=== PATIENT | male | born 1990 | race Caucasian/White ===

== ENCOUNTER 2016-05-30 08:09 | Emergency (ER) | payer BC ==
[~2016-05-30] VITALS: Wt 94.5 kg
[~2016-05-30 08:09] MED LIST: TYLENOL
[2016-05-30] MEDS ORDERED: SOD CHLORIDE 0.9% 1,000 ML IV STA (08:59)
[2016-05-30] MEDS ORDERED: ONDANSETRON 4 MG INJ IV STA (08:59)
[2016-05-30] MEDS ORDERED: morphine 2 MG INJ IV STA (08:59)
--- NOTE | 2016-05-30 09:35 | RADRPT ---
PROCEDURE: US Abdomen (Right upper quadrant) CLINICAL INDICATION: Abdominal pain. TECHNIQUE: Multiple real-time longitudinal and transverse images were acquired of the patient's ri ght upper quadrant utilizing a curved array transducer. COMPARISON: None. FINDINGS: Liver demonstrates diffuse increase in parenchymal echogenicity. No focal liver mass. Portal vein demonstrates hepatopetal flow. Gallbladder is normal. There are no gallstones. There is no gallbladder wall thickening or pericho lecystic fluid. No intra- or extrahepatic biliary dilation. Pancreas is poorly visualized. Right kidney demonstrates no hydronephrosis or nephrolithiasis. No ascites. Proximal aorta and IVC are unremarkable. MEASUREMENTS: Liver: 15.8 cm Common Duct: 0.3 cm Right Kidney: 11.0 cm IMPRESSION: 1. Hepatic steatosis. 2. Otherwise, unremarkable examination. RPTAT: EE .Petey Morataya MD, MD Date Time Electronically viewed and signed by .Petey Morataya MD, on 05/30/2016 09:39 .C/
--- NOTE | 2016-05-30 09:47 | RADRPT ---
PROCEDURE: Chest x-ray CLINICAL INDICATION: Pain. TECHNIQUE: One-view frontal. COMPARISON: 06/19/2014 FINDINGS: The cardiac silhouette is normal. No infiltrates are noted. No hilar abnormalities are identified. No pneumothorax or pleural effusions are visualized. IMPRESSION: 1. No active cardiopulmonary changes. RPTAT: HH .Leon Bean MD, MD Date Time Electronically viewed and signed by .Leon Bean MD, MD on 05/30/2016 09:47 .G/
[2016-05-30 09:57] LABS: URINE BLOOD (Dip) POC 1+ (NEGATIVE)
[2016-05-30 10:14] LABS: BASOPHILS % 0.4 % (0.0-2.0); EOSINOPHILS % 0.2 % (0.0-7.0); HEMATOCRIT 47.1 % (42.0-52.0); HEMOGLOBIN 16.4 g/dl (14.0-18.0); LYMPHOCYTES # 1.4 10^3/ul (0.8-2.9); LYMPHOCYTES % 17.9 % (15.0-51.0); MEAN CORPUSCULAR HEMOGLOBIN 29.6 pg (29.0-33.0); MEAN CORPUSCULAR HGB CONC 34.7 g/dl (32.0-37.0); MEAN CORPUSCULAR VOLUME 85.1 fl (82.0-101.0); MEAN PLATELET VOLUME 9.5 fl (7.4-10.4); MONOCYTE # 0.4 10^3/ul (0.3-0.9); MONOCYTES % 5.4 % (0.0-11.0); NEUTROPHIL # 5.8 10^3/ul (1.6-7.5); NEUTROPHILS % 76.1 % (39.0-77.0); PLATELET COUNT 212 10^3/UL (140-440); RED BLOOD COUNT 5.53 10^6/ul (4.70-6.10); RED CELL DISTRIBUTION WIDTH 13.4 % (11.5-14.5); UNCORRECTED WBC 7.7 10^3/ul (4.8-10.8); WHITE BLOOD COUNT 7.7 10^3/ul (4.8-10.8)
[2016-05-30 10:18] LABS: ALBUMIN 4.7 g/dl (3.3-4.9)
[2016-05-30 10:21] LABS: ALBUMIN/GLOBULIN RATIO 1.11; BILIRUBIN,INDIRECT 0.5 mg/dl (0-1.1); BILIRUBIN,TOTAL 0.5 mg/dl (0.2-1.3); CALCIUM 9.9 mg/dl (8.4-10.2); CREATININE 0.83 mg/dl (0.61-1.24); TOTAL PROTEIN 8.9 g/dl (6.1-8.1)
[2016-05-30 10:23] LABS: CONDITION 1
[2016-05-30] MEDS ORDERED: HYDR-906 PO (11:13)
[2016-05-30] MEDS ORDERED: ONDA4TAB8 PO (11:13)
--- NOTE | 2016-05-30 11:29 | ERD ---
ER Documentation Chief Complaint Date/Time DATE: 05/30/16 TIME: 11:24 Chief Complaint ABDOMINAL PAIN SINCE YESTEDAY, EPIGASTRIC AREA, NAUSEA NO VOMITING HPI This is a 25-year-old male presenting to the emergency department for epigastric abdominal pain 2 days. Patient states the pain started after eating a large meal and has been getting worse. Patient states he feels a squeezing and pressure type pain. Pain is nonradiating. Patient states he has nausea however no vomiting or diarrhea. No dysuria or hematuria. No chest or back pain. No shortness of breath or difficulty breathing. No heart palpitations or weakness. Patient rating pain 8/10 to epigastric region. Patient did not take any medications at home. ROS All systems reviewed and are negative except as per history of present illness. Medications Home Meds Active Scripts Ondansetron Hcl* (Zofran*) 4 Mg Tablet, 4 MG PO Q6H for NAUSEA AND/OR VOMITING, #10 TAB Prov:KATHERYN ROBERTS NP 05/30/16 Hydrocodone/Acetaminophen (Mears 5-325 Tablet) 1 Each Tablet, 1 TAB PO Q6H Y for PAIN, #7 TAB Prov:KATHERYN ROBERTS NP 05/30/16 Reported Medications [Tylenol] No Conflict Check 09/28/10 Allergies Allergies: Uncoded Allergies: NONE (Allergy, Mild, 09/28/10) PMhx/Soc Medical and Surgical Hx: pt denies Medical Hx, pt denies Surgical Hx History of Surgery: No Anesthesia Reaction: No Hx Neurological Disorder: No Hx Respiratory Disorders: No Hx Cardiac Disorders: No Hx Psychiatric Problems: No Hx Alcohol Use: No Hx Substance Use: No Hx Tobacco Use: No Smoking Status: Never smoker Physical Exam Vitals Vital Signs Date Time Temp Pulse Resp B/P Pulse Ox O2 Delivery O2 Flow Rate FiO2 05/30/16 08:12 98.0 70 21 148/77 99 Physical Exam Const: Alert, nontoxic appearing Head: Atraumatic Eyes: Normal Conjunctiva ENT: Normal External Ears, Nose and Mouth. Neck: Full range of motion..~ No meningismus. Resp: Clear to auscultation bilaterally, no wheezing, rhonchi or crackles. Cardio: Regular rate and rhythm, no murmurs Abd: Soft, non tender, non distended. Normal bowel sounds, negative Will sign. No masses palpable. No rebound tenderness. Skin: No petechiae or rashes Back: No midline or flank tenderness Ext: No cyanosis, or edema Neur: Awake and alert Psych: Normal Mood and Affect Result Diagram: 05/30/1693405/30/1635 Results 24 hrs Laboratory Tests Test 05/30/16 09:35 05/30/16 09:58 Alanine Aminotransferase (ALT/SGPT) 71IU/L Albumin 4.7g/dl Albumin/Globulin Ratio 1.11 Alkaline Phosphatase 82IU/L Anion Gap 20 Aspartate Amino Transf (AST/SGOT) 37IU/L Basophils # 0.010^3/ul Basophils % 0.4% Blood Urea Nitrogen 17mg/dl Calcium Level 9.9mg/dl Carbon Dioxide Level 28mmol/L Chloride Level 102mmol/L Creatinine 0.83mg/dl Direct Bilirubin 0.00mg/dl Eosinophils # 0.010^3/ul Eosinophils % 0.2% Globulin 4.20g/dl Glucose Level 86mg/dl Hematocrit 47.1% Hemoglobin 16.4g/dl Indirect Bilirubin 0.5mg/dl Lipase 39U/L Lymphocytes # 1.410^3/ul Lymphocytes % 17.9% Mean Corpuscular Hemoglobin 29.6pg Mean Corpuscular Hemoglobin Concent 34.7g/dl Mean Corpuscular Volume 85.1fl Mean Platelet Volume 9.5fl Monocytes # 0.410^3/ul Monocytes % 5.4% Neutrophils # 5.810^3/ul Neutrophils % 76.1% Nucleated Red Blood Cells # 0.010^3/ul Nucleated Red Blood Cells % 0.0/100WBC Platelet Count 58529^3/UL Potassium Level 5.0mmol/L Red Blood Count 5.5310^6/ul Red Cell Distribution Width 13.4% Sodium Level 145mmol/L Total Bilirubin 0.5mg/dl Total Protein 8.9g/dl White Blood Count 7.710^3/ul Bedside Urine Blood 1+ Bedside Urine Glucose (UA) Negative Bedside Urine Ketones (LAB) Negative Bedside Urine Leukocyte Esterase (L Negative Bedside Urine Nitrite (LAB) Negative Bedside Urine Protein (LAB) 1+ Bedside Urine pH (LAB) 7.5 Current Medications Medications (Trade) Dose Ordered Sig/Isa Route PRN Reason Start Time Stop Time Status Last Admin Dose Admin Sodium Chloride (NS) 1,000 ml @ 1,000 mls/hr Q1H STAT IV 05/30/16 08:59 05/30/16 09:58 DC 05/30/16 09:34 Morphine Sulfate (morphine) 2 mg ONCE STAT IV 05/30/16 08:59 05/30/16 09:02 DC 05/30/16 09:34 Ondansetron HCl (Zofran Inj) 4 mg ONCE STAT IV 05/30/16 08:59 05/30/16 09:02 DC 05/30/16 09:34 Procedures/MDM ED COURSE: The patient was stable throughout ED course. I kept the patient and/or family informed of laboratory and diagnostic imaging results throughout the ED course. Laboratory CBC shows no evidence of infection or significant anemia CMP shows no electrolyte imbalance. AST 37, ALT 71 Lipase 39 Urine dip 1+ protein, 1+ blood Imaging Patient: KRISTIE URBINA : 1990 Age: 25 Sex: M MR #: [id number] DOS: 05/30/16 0859 Ordering MD: KATHERYN ROBERTS NP Location: [facility] Room/Bed: PROCEDURE: Chest x-ray CLINICAL INDICATION: Pain. TECHNIQUE: One-view frontal. COMPARISON: 06/19/2014 FINDINGS: The cardiac silhouette is normal. No infiltrates are noted. No hilar abnormalities are identified. No pneumothorax or pleural effusions are visualized. IMPRESSION: 1. No active cardiopulmonary changes. Patient: KRISTIE URBINA : 1990 Age: 25 Sex: M MR #: [id number] DOS: 05/30/1659 Ordering MD: KATHERYN ROBERTS NP Location: [facility] Room/Bed: PROCEDURE: US Abdomen (Right upper quadrant) CLINICAL INDICATION: Abdominal pain. TECHNIQUE: Multiple real-time longitudinal and transverse images were acquired of the patient's right upper quadrant utilizing a curved array transducer. COMPARISON: None. FINDINGS: Liver demonstrates diffuse increase in parenchymal echogenicity. No focal liver mass. Portal vein demonstrates hepatopetal flow. Gallbladder is normal. There are no gallstones. There is no gallbladder wall thickening or pericholecystic fluid. No intra- or extrahepatic biliary dilation. Pancreas is poorly visualized. Right kidney demonstrates no hydronephrosis or nephrolithiasis. No ascites. Proximal aorta and IVC are unremarkable. MEASUREMENTS: Liver: 15.8 cm Common Duct: 0.3 cm Right Kidney: 11.0 cm IMPRESSION: 1. Hepatic steatosis. 2. Otherwise, unremarkable examination. MDM: 25-year-old male presents emergency department for epigastric abdominal pain 2 days. Presents with nausea however no vomiting or diarrhea. Patient given morphine and Zofran while in the ED with good relief of pain and nausea. No active vomiting while in the ED..Labs reveal elevated ALT at 71 otherwise unremarkable. Patient now is asymptomatic. Vital signs are stable. No signs or symptoms of respiratory distress. Abdominal pain has resolved. Low suspicion for acute cholecystitis, choledocholithiasis, appendicitis or bowel obstruction. Patient's differential diagnosis includes but not limited to gastritis, GERD, peptic ulcer disease, CLOUD and cholelithiasis. Patient is appropriate for outpatient management will be given prescriptions for Mears and Zofran. Instructed patient to return to ED in 8 hours for abdominal pain reassessment. Instructed patient to follow-up with primary care provider in the next 1-2 days for reassessment and additional management. Copies of imaging and laboratory results provided to patient. Return to ED for any high fever, chest pain, difficulty breathing, shortness breath, wheezing, vomiting, diarrhea, abdominal pain or any new or worsening symptoms. Patient verbalizes understanding. All questions answered at discharge. Departure Diagnosis: Primary Impression: Abdominal pain Abdominal location: epigastric Qualified Code: R10.13 - Epigastric pain Condition: Stable Patient Instructions: Abdominal Pain Referrals: SONJA RANDALL MD (PCP) [facility] YOU HAVE RECEIVED A MEDICAL SCREENING EXAM AND THE RESULTS INDICATE THAT YOU DO NOT HAVE A CONDITION THAT REQUIRES URGENT TREATMENT IN THE EMERGENCY DEPARTMENT. FURTHER EVALUATION AND TREATMENT OF YOUR CONDITION CAN WAIT UNTIL YOU ARE SEEN IN YOUR DOCTORS OFFICE WITHIN THE NEXT 1-2 DAYS. IT IS YOUR RESPONSIBILITY TO MAKE AN APPOINTMENT FOR FOLOW-UP CARE. IF YOU HAVE A PRIMARY DOCTOR --you should call your primary doctor and schedule an appointment IF YOU DO NOT HAVE A PRIMARY DOCTOR YOU CAN CALL OUR PHYSICIAN REFERRAL HOTLINE AT IF YOU CAN NOT AFFORD TO SEE A PHYSICIAN YOU CAN CHOSE FROM THE FOLLOWING [facility] [address] [facility]. [facility] [address] [facility] [address] [facility]. [facility] [address] [facility]. [facility] [address] [facility]. [facility]. [address] [facility]. [facility] YOU HAVE RECEIVED A MEDICAL SCREENING EXAM AND THE RESULTS INDICATE THAT YOU DO NOT HAVE A CONDITION THAT REQUIRES URGENT TREATMENT IN THE EMERGENCY DEPARTMENT. FURTHER EVALUATION AND TREATMENT OF YOUR CONDITION CAN WAIT UNTIL YOU ARE SEEN IN YOUR DOCTORS OFFICE WITHIN THE NEXT 1-2 DAYS. IT IS YOUR RESPONSIBILITY TO MAKE AN APPOINTMENT FOR FOLOW-UP CARE. IF YOU HAVE A PRIMARY DOCTOR --you should call your primary doctor and schedule and appointment IF YOU DO NOT HAVE A PRIMARY DOCTOR YOU CAN CALL OUR PHYSICIAN REFERRAL HOTLINE AT . IF YOU CAN NOT AFFORD TO SEE A PHYSICIAN YOU CAN CHOSE FROM THE FOLLOWING [facility] INSTITUTIONS: [facility] [address] [place] [address] [facility] [address] [place] [address] [facility] [address] [place] [address] Additional Instructions: Return to ED in 8 hours for abdominal pain reassessment. Call your primary care doctor TOMORROW for an appointment during the next 2-3 days.See the doctor sooner or return here if your condition worsens before your appointment time. Return to ED for any high fever, chest pain, difficulty breathing, shortness breath, wheezing, vomiting, diarrhea, abdominal pain or any new or worsening symptoms. KATHERYN ROBERTS NP May 30, 2016 11:29
[2016-05-30 11:30] VITALS: BP 126/73; PULSE 67; RESP 16; TEMP 98.4
== END 2016-05-30 11:30 | disposition home or self-care (01) ==
LOC: FTE 08:09
DX: R10.13 Epigastric pain (principal); R11.0 Nausea
CPT/HCPCS: 36415; 71010; 76705; 80053; 81003; 83690; 85025; 96361; 96374; 96375; 99285; J2270; J2405; J7030